=== PATIENT | female | born 1980 | race American Indian/Alaskan Native ===

== ENCOUNTER 2017-01-08 06:04 | Day surgery (SDC) | payer MEDICAID ==
[2017-01-08] MEDS ORDERED: WATER FOR IRRIG STERILE IR ONE (07:35)
--- NOTE | 2017-01-08 07:38 | Anesthesia Consultation ---
Anesthesia Consult and Med Hx Date of service: 01/08/17 - Airway Anesthetic Teeth Evaluation: Good ROM Head & Neck: Adequate Mental/Hyoid Distance: Adequate Mallampati Class: Class II Intubation Access Assessment: Probably Good - Pulmonary Exam CTA: Yes - Cardiac Exam Cardiac Exam: RRR - Pre-Operative Health Status ASA Pre-Surgery Classification: ASA3 Proposed Anesthetic Plan: MAC - Pre-Anesthesia Comment Pre-Anesthesia Comments: CHF resolved after in '08 - Pulmonary Hx Smoking: Yes (1/2 ppd x 11 yrs) - Cardiovascular System Hx Hypertension: Yes (noncompliant with meds,stopped early this year) - Central Nervous System 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
--- NOTE | 2017-01-08 07:39 | Anesthesia Day of Surgery ---
Anesthesia Day of Surgery - Day of Surgery Patient Examined: Yes Patient H&P Reviewed: Yes Patient is NPO: Yes
[2017-01-08] MEDS ORDERED: DIPRIVAN 10 MG/ML IV ONE ×2 (07:42→08:32)
[2017-01-08] MEDS ORDERED: NACL 0.9% 1000 ML 1,000 ML IV SCH (08:00)
--- NOTE | 2017-01-08 08:05 | Discharge Summary ---
Providers - Providers Attending physician: SHWETHA QUINONEZ Hospitalization Procedures: egd Hospital course: 36 y.o. F with hx of gastric sleeve. She had an egd for evaluation of her sleeve due to reflux symptoms. Disposition: DC-01 TO HOME OR SELFCARE Core Measure Documentation - Palliative Care Palliative Care/ Comfort Measures: Not Applicable - Core Measures Any of the following diagnoses?: none Exam - Physical Exam Narrative exam: no change from prior - Constitutional Vitals: Temp Pulse Resp BP Pulse Ox 97.2 F L 67 16 124/76 100 01/08/17 07:45 01/08/17 07:45 01/08/17 07:45 01/08/17 07:45 01/08/17 07:45 Plan Additional Instructions: follow up to discuss results with Dr. Quinonez
--- NOTE | 2017-01-08 08:05 | Operative Report ---
Operative Report Operative Report: EGD lap gastric sleeve DATE: 01/08/17 OPERATIVE REPORT - EGD PREOP DIAGNOSIS: gastric dyspepsia POSTOP DIAGNOSIS: gastric dyspepsia, hiatal hernia, gastritis, distal esophagitis SURGERY: Upper endoscopy. SURGEON: Cristiano Lieberman PARLIAMENTARY LIBRARIAN: Humera Zendejas DO. TYPE OF ANESTHESIA: MAC. ESTIMATED BLOOD LOSS: None. COMPLICATIONS: None. SPECIMENS REMOVED: GE junction x 2 FINDINGS: 1. Distal esophagitis 2. gastritis 3. hiatal hernia INDICATIONS:INDICATION FOR PROCEDURE: Patient is a 36-year-old F s/p lap sleeve gastrectomy in the past. She has been having reflux symptoms despite use of medications. The patient is here today for evaluation for revisional surgery. The patient is here for a planned EGD for gastric dyspepsia. PROCEDURE DETAILS: After consent was reviewed, patient was taken back to the operating room where patient was placed in the left lateral decubitus position and a bite block was placed in the mouth. After a time-out was called, MAC anesthesia was initiated. I then passed the endoscope into the patients oropharynx, into the esophagus, visualized the entire esophagus. She had distal esophagitis. I biopsied the GE junction x 2. I then visualized the gastric sleeve.I noted a hiatal hernia via the ge juction being above the z line . I then desufflated the gastric pouch and removed the endoscope. Patient tolerated procedure well and was transferred to recovery room in good and stable condition
[2017-01-08 09:10] VITALS: BP 119/65
[2017-01-08] MEDS ORDERED: XYLOCAINE MPF 2% ONE (10:00)
--- NOTE | 2017-01-08 10:50 | Post Anesthesia Evaluation ---
- Post Anesthesia Evaluation Patient Participated: Yes Airway Patent: Yes Stable Respiratory Function: Yes Nausea/Vomiting: No Temp > 96.8F: Yes Pain Manageable: Yes Adequeate Hydration: Yes Anesthesia Complications: No Block Receding Appropriately: Not Applicable Patient on Ventilator: No
== END 2017-01-08 06:05 | disposition home or self-care (01) ==
LOC: GIO 06:04
PROVIDERS: ATTEND Specialist
DX: K29.50 Unspecified chronic gastritis without bleeding (principal); K21.0 Gastro-esophageal reflux disease with esophagitis; K44.9 Diaphragmatic hernia without obstruction or gangrene; I10 Essential (primary) hypertension; E66.9 Obesity, unspecified; F17.210 Nicotine dependence, cigarettes, uncomplicated; Z68.39 Body mass index [BMI] 39.0-39.9, adult; Z98.84 Bariatric surgery status; Z98.890 Other specified postprocedural states; Z98.51 Tubal ligation status
CPT/HCPCS: 43239; 81025; 88305; J2704; J7030; 88312

== ENCOUNTER → 2017-01-17 | Outpatient (CLI) | payer MEDICAID | LOC: SLR 11:00 | PROVIDERS: ATTEND Specialist | DX: G47.30 Sleep apnea, unspecified (principal) | CPT/HCPCS: G0399 ==